=== PATIENT | female | born 1985 | race Caucasian/White ===

== ENCOUNTER 2017-05-18 11:57 | Outpatient (CLI) | payer OTHER ==
[2017-05-18 12:16] VITALS: BP 121/72
[2017-05-18 13:13] LABS: SOURCE URINE
[2017-05-18 13:25] LABS: APPEARANCE CLOUDY ((CLEAR)); BILIRUBIN NEGATIVE; BLOOD NEGATIVE; GLUCOSE (STRIP) NEGATIVE; KETONES 5; LEUKOCYTES NEGATIVE; NITRITE NEGATIVE; PROTEIN (STRIP) 100; SPECIFIC GRAVITY 1.028 (1.000-1.030); UROBILINOGEN 0.2 MG/DL (0.2-1.0)
[2017-05-18 13:26] LABS: COLOR YELLOW ((YELLOW))
[2017-05-18 13:39] LABS: BASOPHIL (%) 0.4 % (0-1); EOSINOPHIL COUNT 0.1 K/uL (0-0.3); HEMATOCRIT 29.8 % (36.0-46.0); HEMOGLOBIN 10.2 G/DL (11.9-15.5); IMMATURE GRANULOCYTE (%) 0.8 % (0.0-0.7); LYMPHOCYTE (%) 24.1 % (15-42); LYMPHOCYTE COUNT 2.6 K/uL (1.0-2.8); MCH 30.2 PG (29.0-34.0); MCHC 34.2 G/DL (30.0-36.0); MCV 88.2 FL (83-99); MONOCYTE (%) 5.9 % (3-12); MONOCYTE COUNT 0.6 K/uL (0-0.8); NEUTROPHIL (%) 67.8 % (45-76); NEUTROPHIL COUNT 7.2 K/uL (1.8-6.4); PLATELET COUNT 211 K/uL (156-360); RBC DIS.WIDTH-CV 13.3 % (11.8-14.6); RED BLOOD COUNT 3.38 M/uL (3.80-5.20); WHITE BLOOD COUNT 10.6 K/uL (4.1-10.2)
[2017-05-18 13:44] LABS: BACTERIA 2+ /HPF; EPITHELIAL CELLS 2+ /HPF; MUCUS NONE SEEN /LPF; RED BLOOD CELLS NONE SEEN /HPF (0-5); UCUL ADDED? YES; WHITE BLOOD CELLS NONE SEEN /HPF (0-5)
[2017-05-18 13:46] LABS: HYALINE CASTS 0-5 /LPF
[2017-05-18 14:01] LABS: ALBUMIN 2.6 G/DL (3.2-4.8); ALKALINE PHOSPHATASE 78 IU/L (3-129); ALT (GPT) 22 IU/L (3-49); AST (GOT) 27 IU/L (2-34); CHLORIDE 107 MEQ/L (99-109); CREATININE 0.6 MG/DL (0.6-1.3); GFR ESTIMATE (CALCULATED) > 59 mL/min/; GLUCOSE 88 mg/dL (70-99); SODIUM 136 MEQ/L (136-147); TOTAL BILIRUBIN 0.2 MG/DL (0.0-1.0); TOTAL PROTEIN 5.6 G/DL (6.4-8.3); UREA NITROGEN (BUN) 11 mg/dL (9-23); URIC ACID 6.7 mg/dL (3.1-9.2)
[2017-05-18 14:19] VITALS: BP 119/60
[2017-05-18 14:19] LABS: Estimated Average Glucose 105 mg/dL (70-123); HEMOGLOBIN A1c (GLYCOHEMOGLOB) 5.3 % HGB (Below 5.7)
[2017-05-18 14:29] LABS: AMPHETAMINE NEGATIVE (500 ng/mL); BARBITURATES NEGATIVE (200 ng/mL); BENZODIAZEPINES NEGATIVE (150 ng/mL); BUPRENORPHINE NEGATIVE (10 ng/mL); COCAINE NEGATIVE (150 ng/mL); METHADONE PRESUMPTIVE POSITIVE (200 ng/mL); METHAMPHETAMINE NEGATIVE (500 ng/mL); OPIATES (MORPHINE) NEGATIVE (100 ng/mL); OXYCODONE NEGATIVE (100 ng/mL); PHENCYCLIDINE NEGATIVE (25 ng/mL); PROPOXYPHENE NEGATIVE (300 ng/mL); THC CANNABINOIDS NEGATIVE (50 ng/mL); TRICYCLIC ANTIDEPRESSANTS PRESUMPTIVE POSITIVE (300 ng/mL)
[2017-05-18 14:59] VITALS: BP 113/56
[2017-05-18] MEDS ORDERED: METHADONE HCL40 MG PO (15:03)
[2017-05-18 15:14] LABS: UR CREATININE CONCENTRATION 141.8 MG/DL
[2017-05-19 10:41] LABS: HEPATITIS B SURFACE ANTIGEN Nonreactive; HIV-1/2 AB/AG COMBO Nonreactive
[2017-05-20 10:33] LABS: TREPONEMA ANTIBODY NEGATIVE (NEGATIVE)
[2017-05-20 12:39] LABS: CHLAMYDIA TRACHOMATIS NEGATIVE; NEISSERIA GONORRHOEAE NEGATIVE
== END 2017-05-18 16:19 | disposition home or self-care (01) ==
LOC: LDRP-OP 11:57 → 2WEST 11:58
PROVIDERS: Advanced Practice Midwife
DX: O12.23 Gestational edema with proteinuria, third trimester (principal); O99.323 Drug use complicating pregnancy, third trimester; F11.20 Opioid dependence, uncomplicated; O99.333 Smoking (tobacco) complicating pregnancy, third trimester; F17.200 Nicotine dependence, unspecified, uncomplicated; Z86.19 Personal history of other infectious and parasitic diseases; Z3A.33 33 weeks gestation of pregnancy
CPT/HCPCS: 59025; 80053; 81003; 82570; 83036; 84156; 84550; 85025; 86703; 86762; 86780; 86850; 86900; 86901; 87086; 87340; 87491; 87591; G0378

== ENCOUNTER 2017-06-08 11:46 | Outpatient (CLI) | payer OTHER ==
[2017-06-08] VITALS (14 sets, daily range): BP systolic 111–128; BP diastolic 58–71
[~2017-06-08 11:46] MED LIST: METHADONE HCL40 MG PO
[2017-06-08 13:24] LABS: BASOPHIL (%) 0.2 % (0-1); EOSINOPHIL (%) 0.9 % (0-5); EOSINOPHIL COUNT 0.1 K/uL (0-0.3); HEMATOCRIT 31.1 % (36.0-46.0); HEMOGLOBIN 10.8 G/DL (11.9-15.5); IMMATURE GRANULOCYTE (%) 1.5 % (0.0-0.7); LYMPHOCYTE (%) 21.4 % (15-42); LYMPHOCYTE COUNT 3.1 K/uL (1.0-2.8); MCH 30.3 PG (29.0-34.0); MCHC 34.7 G/DL (30.0-36.0); MCV 87.4 FL (83-99); MONOCYTE (%) 5.3 % (3-12); MONOCYTE COUNT 0.8 K/uL (0-0.8); NEUTROPHIL (%) 70.7 % (45-76); NEUTROPHIL COUNT 10.2 K/uL (1.8-6.4); PLATELET COUNT 261 K/uL (156-360); RBC DIS.WIDTH-CV 13.2 % (11.8-14.6); RBC DIS.WIDTH-SD 42.6 % (39-53); RED BLOOD COUNT 3.56 M/uL (3.80-5.20); WHITE BLOOD COUNT 14.4 K/uL (4.1-10.2)
[2017-06-08 14:16] LABS: ALBUMIN 2.4 G/DL (3.2-4.8); ALKALINE PHOSPHATASE 97 IU/L (3-129); ALT (GPT) 15 IU/L (3-49); AST (GOT) 21 IU/L (2-34); CHLORIDE 107 MEQ/L (99-109); CREATININE 0.6 MG/DL (0.6-1.3); GFR ESTIMATE (CALCULATED) > 59 mL/min/; GLUCOSE 74 mg/dL (70-99); LACTATE DEHYDROGENASE 154 IU/L (20-246); POTASSIUM 4.6 MEQ/L (3.7-5.4); SODIUM 134 MEQ/L (136-147); TOTAL BILIRUBIN 0.1 MG/DL (0.0-1.0); UREA NITROGEN (BUN) 20 mg/dL (9-23); URIC ACID 6.5 mg/dL (3.1-9.2)
[2017-06-08 14:28] LABS: BILIRUBIN NEGATIVE; BLOOD NEGATIVE; COLOR AMBER ((YELLOW)); GLUCOSE (STRIP) NEGATIVE; KETONES NEGATIVE; LEUKOCYTES NEGATIVE; NITRITE NEGATIVE; PROTEIN (STRIP) >=500; SPECIFIC GRAVITY 1.033 (1.000-1.030); UROBILINOGEN 0.2 MG/DL (0.2-1.0)
[2017-06-08 14:40] LABS: APPEARANCE HAZY ((CLEAR))
[2017-06-08 14:56] LABS: BENZODIAZEPINES, URINE SCREEN POSITIVE (200 ng/mL)
[2017-06-08 15:08] LABS: UR CREATININE CONCENTRATION 228.2 MG/DL
[2017-06-08 15:20] LABS: EPITHELIAL CELLS RARE /HPF; RED BLOOD CELLS NONE SEEN /HPF (0-5); WHITE BLOOD CELLS NONE SEEN /HPF (0-5)
[2017-06-08 15:21] LABS: BACTERIA NONE SEEN /HPF; MUCUS NONE SEEN /LPF; UCUL ADDED? NO
== END 2017-06-08 16:08 | disposition home or self-care (01) ==
LOC: LDRP-OP → 2WEST 11:47 → LDRP-OP 08-02 16:24
PROVIDERS: Advanced Practice Midwife
DX: O12.13 Gestational proteinuria, third trimester (principal); Z87.891 Personal history of nicotine dependence; Z86.19 Personal history of other infectious and parasitic diseases; Z87.448 Personal history of other diseases of urinary system; F14.11 Cocaine abuse, in remission; F11.11 Opioid abuse, in remission; Z3A.36 36 weeks gestation of pregnancy
CPT/HCPCS: 59025; 80053; 80306 90; 81003; 82570; 83615; 84156; 84550; 85025; 85384; G0378

== ENCOUNTER 2017-06-13 04:40 | Outpatient (CLI) | payer OTHER ==
[2017-06-13] VITALS (11 sets, daily range): BP systolic 120–139; BP diastolic 60–86
[2017-06-13 05:50] LABS: BASOPHIL (%) 0.2 % (0-1); EOSINOPHIL (%) 0.3 % (0-5); EOSINOPHIL COUNT 0.1 K/uL (0-0.3); HEMATOCRIT 32.6 % (36.0-46.0); HEMOGLOBIN 11.1 G/DL (11.9-15.5); IMMATURE GRANULOCYTE (%) 1.2 % (0.0-0.7); LYMPHOCYTE (%) 7.6 % (15-42); LYMPHOCYTE COUNT 1.7 K/uL (1.0-2.8); MCH 29.9 PG (29.0-34.0); MCV 87.9 FL (83-99); MONOCYTE (%) 3.8 % (3-12); MONOCYTE COUNT 0.9 K/uL (0-0.8); NEUTROPHIL (%) 86.9 % (45-76); NEUTROPHIL COUNT 19.4 K/uL (1.8-6.4); PLATELET COUNT 236 K/uL (156-360); RBC DIS.WIDTH-CV 13.5 % (11.8-14.6); RBC DIS.WIDTH-SD 43.6 % (39-53); RED BLOOD COUNT 3.71 M/uL (3.80-5.20); WHITE BLOOD COUNT 22.3 K/uL (4.1-10.2)
[2017-06-13 05:53] LABS: AMPHETAMINE NEGATIVE (500 ng/mL); BARBITURATES NEGATIVE (200 ng/mL); BENZODIAZEPINES NEGATIVE (150 ng/mL); BUPRENORPHINE NEGATIVE (10 ng/mL); COCAINE NEGATIVE (150 ng/mL); METHADONE PRESUMPTIVE POSITIVE (200 ng/mL); METHAMPHETAMINE NEGATIVE (500 ng/mL); OPIATES (MORPHINE) NEGATIVE (100 ng/mL); OXYCODONE NEGATIVE (100 ng/mL); PHENCYCLIDINE NEGATIVE (25 ng/mL); PROPOXYPHENE NEGATIVE (300 ng/mL); THC CANNABINOIDS NEGATIVE (50 ng/mL); TRICYCLIC ANTIDEPRESSANTS PRESUMPTIVE POSITIVE (300 ng/mL)
[2017-06-13 06:09] LABS: UR CREATININE CONCENTRATION 55.4 MG/DL
[2017-06-13] MEDS ORDERED: ZOLOFT100 MG PO (06:09)
[2017-06-13] MEDS ORDERED: METHADONE1 MG/1 ML PO (06:09)
[2017-06-13] MEDS ORDERED: SEROQUEL200 MG PO (06:10)
[2017-06-13 07:09] LABS: ALBUMIN 2.4 G/DL (3.2-4.8); ALKALINE PHOSPHATASE 100 IU/L (3-129); ALT (GPT) 16 IU/L (3-49); AST (GOT) 23 IU/L (2-34); CHLORIDE 105 MEQ/L (99-109); CREATININE 0.8 MG/DL (0.6-1.3); GFR ESTIMATE (CALCULATED) > 59 mL/min/; LACTATE DEHYDROGENASE 139 IU/L (20-246); POTASSIUM 4.3 MEQ/L (3.7-5.4); SODIUM 134 MEQ/L (136-147); TOTAL BILIRUBIN 0.2 MG/DL (0.0-1.0); TOTAL PROTEIN 5.4 G/DL (6.4-8.3); UREA NITROGEN (BUN) 15 mg/dL (9-23)
[2017-06-13 07:13] LABS: GLUCOSE 92 mg/dL (70-99)
[2017-06-13 07:56] LABS: UR CREATININE CONCENTRATION 47.6 MG/DL
== END 2017-06-13 10:50 | disposition home or self-care (01) ==
LOC: LDRP-OP → 2WEST 04:41 → LDRP-OP 08-02 22:01
PROVIDERS: Advanced Practice Midwife
DX: O12.2 Gestational edema with proteinuria (principal); Z3A.00 Weeks of gestation of pregnancy not specified
CPT/HCPCS: 59025; 80053; 82570; 83615; 84156; 85025; 85384; G0378

== ENCOUNTER 2017-06-14 18:47 | Outpatient (CLI) | payer OTHER ==
[~2017-06-14 18:47] MED LIST changes: +METHADONE1 MG/1 ML PO; +SEROQUEL200 MG PO; +ZOLOFT100 MG PO
[2017-06-14 19:16] VITALS: BP 134/82
[2017-06-14 20:32] VITALS: BP 128/77
== END 2017-06-14 21:45 | disposition home or self-care (01) ==
LOC: LDRP-OP 18:47 → 2WEST 18:49 → LDRP-OP 08-02 11:11
DX: O47.1 False labor at or after 37 completed weeks of gestation (principal); O99.343 Other mental disorders complicating pregnancy, third trimester; F32.9 Major depressive disorder, single episode, unspecified; F43.10 Post-traumatic stress disorder, unspecified; O99.013 Anemia complicating pregnancy, third trimester; D64.9 Anemia, unspecified; O99.613 Diseases of the digestive system complicating pregnancy, third trimester; K59.00 Constipation, unspecified; O98.413 Viral hepatitis complicating pregnancy, third trimester; B19.20 Unspecified viral hepatitis C without hepatic coma; O99.323 Drug use complicating pregnancy, third trimester; F11.90 Opioid use, unspecified, uncomplicated; Z3A.37 37 weeks gestation of pregnancy
CPT/HCPCS: 59025; G0378; J7120

== ENCOUNTER 2017-06-24 12:30 | Inpatient (IN) | payer OTHER ==
[~2017-06-24] VITALS: Ht 165.1 cm; Wt 84.1 kg
[2017-06-24] VITALS (9 sets, daily range): BP systolic 132–156; BP diastolic 74–90
[2017-06-24] MEDS ORDERED: METHADONE1 MG/1 ML PO (13:04)
[2017-06-24] MEDS ORDERED: IRON 100-VITAM1 EACH PO (13:05)
[2017-06-24] MEDS ORDERED: PRENATAL TABLE1 EAC3 PO (13:05)
[2017-06-24 13:32] LABS: BASOPHIL (%) 0.4 % (0-1); BASOPHIL COUNT 0.1 K/uL (0-0.1); EOSINOPHIL (%) 0.9 % (0-5); EOSINOPHIL COUNT 0.1 K/uL (0-0.3); HEMATOCRIT 34.4 % (36.0-46.0); IMMATURE GRANULOCYTE (%) 1.5 % (0.0-0.7); LYMPHOCYTE (%) 22.6 % (15-42); LYMPHOCYTE COUNT 3.1 K/uL (1.0-2.8); MCHC 34.9 G/DL (30.0-36.0); MCV 88.9 FL (83-99); MONOCYTE (%) 4.7 % (3-12); MONOCYTE COUNT 0.7 K/uL (0-0.8); NEUTROPHIL (%) 69.9 % (45-76); NEUTROPHIL COUNT 9.6 K/uL (1.8-6.4); RBC DIS.WIDTH-SD 44.9 % (39-53); RED BLOOD COUNT 3.87 M/uL (3.80-5.20); WHITE BLOOD COUNT 13.8 K/uL (4.1-10.2)
[2017-06-24 13:33] LABS: PLATELET COUNT 334 K/uL (156-360)
[2017-06-24 13:43] LABS: INTER. NORMALIZED RATIO 0.9
[2017-06-24 13:46] LABS: PTT 29.9 SEC (25-37)
[2017-06-24 13:49] LABS: ALBUMIN 2.3 G/DL (3.2-4.8); CHLORIDE 104 MEQ/L (99-109); POTASSIUM 4.2 MEQ/L (3.7-5.4); SODIUM 132 MEQ/L (136-147); TOTAL BILIRUBIN 0.1 MG/DL (0.0-1.0)
[2017-06-24 13:55] LABS: ALKALINE PHOSPHATASE 120 IU/L (3-129); ALT (GPT) 16 IU/L (3-49); AST (GOT) 22 IU/L (2-34); CREATININE 0.7 MG/DL (0.6-1.3); GFR ESTIMATE (CALCULATED) > 59 mL/min/; GLUCOSE 74 mg/dL (70-99); LACTATE DEHYDROGENASE 134 IU/L (20-246); TOTAL PROTEIN 5.6 G/DL (6.4-8.3); UREA NITROGEN (BUN) 15 mg/dL (9-23); URIC ACID 6.5 mg/dL (3.1-9.2)
[2017-06-24 14:12] LABS: FIBRINOGEN 555 mg/dL (150-450)
[2017-06-24 23:24] LABS: AMPHETAMINE NEGATIVE (500 ng/mL); BARBITURATES NEGATIVE (200 ng/mL); BENZODIAZEPINES NEGATIVE (150 ng/mL); BUPRENORPHINE NEGATIVE (10 ng/mL); COCAINE NEGATIVE (150 ng/mL); METHADONE PRESUMPTIVE POSITIVE (200 ng/mL); METHAMPHETAMINE NEGATIVE (500 ng/mL); OPIATES (MORPHINE) NEGATIVE (100 ng/mL); OXYCODONE NEGATIVE (100 ng/mL); PHENCYCLIDINE NEGATIVE (25 ng/mL); PROPOXYPHENE NEGATIVE (300 ng/mL); THC CANNABINOIDS NEGATIVE (50 ng/mL); TRICYCLIC ANTIDEPRESSANTS NEGATIVE (300 ng/mL)
[2017-06-25] VITALS (36 sets, daily range): BP systolic 123–166; BP diastolic 59–93
[2017-06-26 02:15] VITALS: BP 145/95
[2017-06-26 06:30] LABS: BASOPHIL (%) 0.3 % (0-1); BASOPHIL COUNT 0.1 K/uL (0-0.1); EOSINOPHIL (%) 0.5 % (0-5); EOSINOPHIL COUNT 0.1 K/uL (0-0.3); HEMATOCRIT 28.9 % (36.0-46.0); IMMATURE GRANULOCYTE (%) 1.1 % (0.0-0.7); LYMPHOCYTE (%) 18.7 % (15-42); LYMPHOCYTE COUNT 3.7 K/uL (1.0-2.8); MCH 30.4 PG (29.0-34.0); MCHC 33.9 G/DL (30.0-36.0); MCV 89.8 FL (83-99); MONOCYTE (%) 4.3 % (3-12); MONOCYTE COUNT 0.9 K/uL (0-0.8); NEUTROPHIL (%) 75.1 % (45-76); NEUTROPHIL COUNT 14.9 K/uL (1.8-6.4); PLATELET COUNT 278 K/uL (156-360); RBC DIS.WIDTH-CV 14.1 % (11.8-14.6); RBC DIS.WIDTH-SD 45.9 % (39-53); RED BLOOD COUNT 3.22 M/uL (3.80-5.20); WHITE BLOOD COUNT 19.8 K/uL (4.1-10.2)
[2017-06-26 06:48] LABS: HEMOGLOBIN 9.8 G/DL (11.9-15.5)
[2017-06-26 08:00] VITALS: BP 146/98
[2017-06-26 11:29] VITALS: BP 140/98
[2017-06-26 14:39] VITALS: BP 128/79
[2017-06-26 19:11] VITALS: BP 142/91
[2017-06-26 22:26] VITALS: BP 136/81
[2017-06-27] VITALS (15 sets, daily range): BP systolic 125–163; BP diastolic 56–93
[2017-06-27] MEDS ORDERED: IBUPROFEN800 MG PO (09:03)
[2017-06-27 16:49] LABS: HEMATOCRIT 30.4 % (36.0-46.0); HEMOGLOBIN 10.4 G/DL (11.9-15.5); MCH 30.8 PG (29.0-34.0); MCHC 34.2 G/DL (30.0-36.0); MCV 89.9 FL (83-99); PLATELET COUNT 309 K/uL (156-360); RBC DIS.WIDTH-CV 14.5 % (11.8-14.6); RED BLOOD COUNT 3.38 M/uL (3.80-5.20); WHITE BLOOD COUNT 15.5 K/uL (4.1-10.2)
[2017-06-27 17:00] LABS: ALBUMIN 2.4 G/DL (3.2-4.8); CHLORIDE 106 MEQ/L (99-109); POTASSIUM 4.2 MEQ/L (3.7-5.4); SODIUM 136 MEQ/L (136-147); TOTAL BILIRUBIN 0.1 MG/DL (0.0-1.0)
[2017-06-27 17:13] LABS: ALKALINE PHOSPHATASE 101 IU/L (3-129); ALT (GPT) 22 IU/L (3-49); AST (GOT) 30 IU/L (2-34); CREATININE 0.7 MG/DL (0.6-1.3); GFR ESTIMATE (CALCULATED) > 59 mL/min/; GLUCOSE 80 mg/dL (70-99); TOTAL PROTEIN 5.7 G/DL (6.4-8.3); UREA NITROGEN (BUN) 19 mg/dL (9-23)
[2017-06-28] VITALS (21 sets, daily range): BP systolic 119–155; BP diastolic 65–93
[2017-06-29 11:29] VITALS: BP 135/92
[2017-06-29 16:42] VITALS: BP 146/83
[2017-06-29 17:44] VITALS: BP 138/86
[2017-06-29 18:40] VITALS: BP 141/82
== END 2017-06-29 20:00 | disposition home or self-care (01) | DRG 774 ==
LOC: LDRP-OP 12:30 → 2WEST 12:31 → LDRP-OP 08-02 00:10
PROVIDERS: Advanced Practice Midwife; Obstetrics & Gynecology
DX: O99.324 Drug use complicating childbirth (principal); O45.93 Premature separation of placenta, unspecified, third trimester; O10.02 Pre-existing essential hypertension complicating childbirth; D62 Acute posthemorrhagic anemia; O98.42 Viral hepatitis complicating childbirth; F33.9 Major depressive disorder, recurrent, unspecified; F11.20 Opioid dependence, uncomplicated; Z37.0 Single live birth; Z3A.38 38 weeks gestation of pregnancy; O99.344 Other mental disorders complicating childbirth; E66.9 Obesity, unspecified; O99.214 Obesity complicating childbirth; B18.2 Chronic viral hepatitis C; O99.02 Anemia complicating childbirth; F17.210 Nicotine dependence, cigarettes, uncomplicated; K59.00 Constipation, unspecified; O99.62 Diseases of the digestive system complicating childbirth; O11.4 Pre-existing hypertension with pre-eclampsia, complicating childbirth; O77.0 Labor and delivery complicated by meconium in amniotic fluid; Z68.30 Body mass index [BMI] 30.0-30.9, adult; N64.0 Fissure and fistula of nipple
CPT/HCPCS: 76818; 80053; 82570; 83615; 83735; 84156; 84550; 85025; 85027; 85384; 85610; 85730; 86850; 86900; 86901; 87502; 88307; C1755; G0378; J1050; J1200; J3010; J3475; J7120

== ENCOUNTER 2017-08-20 07:08 | Day surgery (SDC) | payer OTHER ==
[~2017-08-20] VITALS: Ht 165.1 cm; Wt 72.5 kg
[~2017-08-20 07:08] MED LIST changes: +ENEMA133 M2 PR; +IBUPROFEN800 MG PO; +IRON 100-VITAM1 EACH PO; +PRENATAL TABLE1 EAC3 PO; +TYLENOL EXTRA500 MG PO
[2017-08-20 08:01] VITALS: BP 121/77
[2017-08-20] MEDS ORDERED: NORCO 5/3251 TABLET PO (10:33)
[2017-08-20 11:45] VITALS: BP 123/76
[2017-08-20 12:22] VITALS: BP 118/71
== END 2017-08-20 12:36 | disposition home or self-care (01) ==
LOC: SDC
DX: K42.0 Umbilical hernia with obstruction, without gangrene (principal); F17.200 Nicotine dependence, unspecified, uncomplicated; Z86.59 Personal history of other mental and behavioral disorders; B18.2 Chronic viral hepatitis C
CPT/HCPCS: 87641; C1781; J0690; J1100; J1885; J2250; J2405; J2550; J2710; J2795; J3010

== ENCOUNTER → 2017-09-20 | Outpatient (CLI) | payer OTHER ==
[~2017-09-20] MED LIST changes: +NORCO 5/3251 TABLET PO; +TEGRETOL200 MG PO; +VITAMIN C500 M1 PO
[2017-09-20 08:06] LABS: HEMATOCRIT 39.7 % (36.0-46.0); HEMOGLOBIN 13.7 G/DL (11.9-15.5); MCHC 34.5 G/DL (30.0-36.0); MCV 83.9 FL (83-99); PLATELET COUNT 309 K/uL (156-360); RBC DIS.WIDTH-CV 12.7 % (11.8-14.6); RBC DIS.WIDTH-SD 38.7 % (39-53); RED BLOOD COUNT 4.73 M/uL (3.80-5.20); WHITE BLOOD COUNT 9.3 K/uL (4.1-10.2)
[2017-09-20 08:16] LABS: PTT 28.7 SEC (25-37)
== END | disposition home or self-care (01) ==
LOC: OPR 09-02 09:00 → EDSTATUS 09-02 09:00 → OPR 09-06 09:00
PROVIDERS: Internal Medicine Nephrology
PROC: 0TB13ZX Excision of Left Kidney, Percutaneous Approach, Diagnostic (ICD-10-PCS; principal; 2017-09-20)
DX: R80.9 Proteinuria, unspecified (principal)
CPT/HCPCS: 77012; 85027; 85610; 85730; 88305; 88313 90; 88346 90; 88348 90; J2060